=== PATIENT | female | born 1975 | race African-American/Black ===

== ENCOUNTER 2019-04-26 21:48 | Emergency (ER) | payer OTHER ==
--- NOTE | 2019-04-27 01:09 | REPVR ---
EXAM: XR Left Foot Complete EXAM DATE/TIME: 04/26/2019 10:44 PM CLINICAL HISTORY: 43 years old, female; Pain; Foot; Left; Additional info: Foot pain TECHNIQUE: Imaging protocol: XR Left foot. Views: 3 or more views. COMPARISON: No relevant prior studies available. FINDINGS: Evaluation of the third through fifth toes is suboptimal, secondary to flexion. This could be correlated with clinical exam. No acute fracture or articular malalignment is seen otherwise. No bony erosive changes are seen. There is mild interphalangeal joint space loss. There is mild degenerative change of the first metatarsal head. IMPRESSION: No radiographic evidence of an acute osseous injury. Other findings discussed above. Electronically signed by: Zan Lira On 04/27/2019 01:09:26 AM
[2019-04-27 01:29] VITALS: BP 113/68
== END 2019-04-27 01:30 | disposition home or self-care (01) ==
LOC: M ED 21:48
DX: S96.212A Strain of intrinsic muscle and tendon at ankle and foot level, left foot, initial encounter (principal); X58.XXXA Exposure to other specified factors, initial encounter; Y92.9 Unspecified place or not applicable; Y93.9 Activity, unspecified; Y99.9 Unspecified external cause status

== ENCOUNTER 2024-04-21 02:45 | Emergency (ER) | payer OTHER ==
[~2024-04-21] VITALS: Ht 162.6 cm; Wt 67.5 kg
[2024-04-21 02:46] VITALS: TEMP 97.6
[2024-04-21 03:45] VITALS: BP 112/68; O2SAT 98
[2024-04-21 06:54] LABS: BASO # 0.1 10^3/uL (0.0-0.2); BASO % 1.1 % (0.0-1.0); EOS # 0.1 10^3/uL (0.0-0.5); EOS % 2.3 % (0.0-3.0); HEMATOCRIT 28.1 % (36.0-47.0); HEMOGLOBIN 7.8 g/dl (12.0-15.5); LYMPH # 1.9 10^3/uL (1.5-5.0); LYMPH % 33.7 % (24.0-44.0); MEAN CORPUSCULAR HEMOGLOBIN 19.5 pg (27.0-33.0); MEAN CORPUSCULAR HGB CONC 27.8 g/dl (32.0-36.5); MEAN CORPUSCULAR VOLUME 70.3 fl (80.0-96.0); MONO # 0.5 10^3/uL (0.0-0.8); MONO % 9.2 % (2.0-8.0); NEUTROPHILS % 53.5 % (36.0-66.0); PLATELET COUNT, AUTOMATED 277 10^3/uL (150-450); WHITE BLOOD COUNT 5.7 10^3/uL (4.0-10.0)
[2024-04-21 07:10] LABS: ALBUMIN 3.3 G/DL (3.2-5.2); ALKALINE PHOSPHATASE 52 U/L (46-116); ALT/SGPT 13 U/L (7.0-40); AST/SGOT 11 U/L (<34); BILIRUBIN,TOTAL 0.6 MG/DL (0.3-1.2); BLOOD UREA NITROGEN 7 MG/DL (9-23); CALCIUM LEVEL 8.5 MG/DL (8.5-10.1); CARBON DIOXIDE LEVEL 26 MMOL/L (20-31); CHLORIDE LEVEL 109 MMOL/L (98-107); CREATININE FOR GFR 0.58 MG/DL (0.55-1.30); GLOMERULAR FILTRATION RATE > 60.0 (>51); GLUCOSE, FASTING 90 MG/DL (60-100); POTASSIUM SERUM 3.9 MMOL/L (3.5-5.1); SODIUM LEVEL 140 MMOL/L (136-145); TOTAL PROTEIN 6.4 G/DL (5.7-8.2)
== END 2024-04-21 07:46 | disposition home or self-care (01) ==
LOC: M ED 02:45
DX: D25.9 Leiomyoma of uterus, unspecified (principal); D64.9 Anemia, unspecified; Z88.5 Allergy status to narcotic agent

== ENCOUNTER 2025-01-19 16:22 | Emergency (ER) | payer OTHER ==
[~2025-01-19] VITALS: Ht 162.6 cm; Wt 70.0 kg
[2025-01-19 18:04] LABS: KETONE, URINE AUTO RFX NEGATIVE (NEGATIVE); LEUKOCYTE ESTERASE UR AUTO RFX NEGATIVE (NEGATIVE); NITRITE, URINE AUTO RFX NEGATIVE (NEGATIVE); RBC, URINE AUTO RFX 3 /HPF (0-3); SQUAM EPITHELIAL CELL UR AURFX 1 /HPF (0-6); WBC, URINE AUTO RFX 1 /HPF (0-3)
[2025-01-19] MEDS: DICYCLOMINE 10 MG CAP PO ONE (19:26)
[2025-01-19] MEDS: SIMETHICONE 80MG CHEW TAB PO ONE (19:26)
[2025-01-19 20:30] VITALS: BP 127/64; O2SAT 96
[2025-01-19] MEDS ORDERED: SIME80CH5 PO (20:50)
[2025-01-19] MEDS ORDERED: DICY20TA20 PO (20:50)
[2025-01-19 20:59] VITALS: TEMP 98.4
== END 2025-01-19 21:08 | disposition home or self-care (01) ==
LOC: M ED 16:22
DX: D25.9 Leiomyoma of uterus, unspecified (principal); R19.7 Diarrhea, unspecified; Z88.5 Allergy status to narcotic agent; Z79.899 Other long term (current) drug therapy